=== PATIENT | male | born 1960 | race Caucasian/White ===

== ENCOUNTER 2022-11-22 14:15 | Outpatient (CLI) | payer OTHER | END 2022-11-22 14:16 | disposition home or self-care (01) | LOC: CSHCP 14:15 | PROVIDERS: ATTEND Chiropractor | DX: I27.20 Pulmonary hypertension, unspecified (principal); R94.2 Abnormal results of pulmonary function studies | CPT/HCPCS: 71046; 94060; 94664; 94760 ==